=== PATIENT | female | born 1990 | race American Indian/Alaskan Native ===

== ENCOUNTER 2017-10-10 19:59 | Emergency (ER) | payer MEDICAID ==
[2017-10-10 20:12] VITALS: BP 122/75; PULSE 79; TEMP 98; O2SAT 100
[2017-10-10] MEDS ORDERED: Amoxicillin-Clav 875-125 mg Tab PO STA (20:51)
[2017-10-10] MEDS ORDERED: Amoxicillin-Clav 875-125 mg Tab PO ONE (21:01)
--- NOTE | 2017-10-10 21:03 | C.PDOC ---
History Of Present Illness 26 y/o female with no significant PMHx comes in for evaluation of bodyaches and malaise developing for the past week. Reports she also developed a sore throat a few days ago, and post-nasal drip. Otherwise patient denies high fever, headache, dizziness, neck stiffness, drooling, dysphagia, dyspnea, cough, SOB, wheezing, abd. pain, N/V/D, UTi sx. Ambulate to ED for evaluation, not in any apparent distress. Time Seen by Provider: 10/10/17 20:21 Chief Complaint (Nursing): ENT Problem History Per: Patient History/Exam Limitations: no limitations Onset/Duration Of Symptoms: Days Current Symptoms Are (Timing): Still Present Location Of Pain: Throat, Diffuse Myalgias Past Medical History Reviewed: Historical Data, Nursing Documentation, Vital Signs Vital Signs: Last Vital Signs Temp 98 F 10/10/17 20:10 Pulse 79 10/10/17 20:10 Resp 18 10/10/17 20:10 BP 122/75 10/10/17 20:10 Pulse Ox 100 10/10/17 21:08 - Medical History PMH: No Chronic Diseases Surgical History: No Surg Hx Family History: States: No Known Family Hx - Social History Hx Tobacco Use: No Hx Alcohol Use: No Hx Substance Use: No - Immunization History Hx Tetanus Toxoid Vaccination: No Hx Influenza Vaccination: No Hx Pneumococcal Vaccination: No Review Of Systems Constitutional: Positive for: Malaise, Other (Bodyaches). Negative for: Fever ENT: Positive for: Nose Discharge, Nose Congestion, Throat Pain Cardiovascular: Negative for: Chest Pain Respiratory: Negative for: Cough, Shortness of Breath, Wheezing Musculoskeletal: Negative for: Neck Pain Neurological: Negative for: Headache Physical Exam - Physical Exam Appears: Well, Non-toxic, No Acute Distress Skin: Normal Color, Warm, No Rash Head: Normacephalic Eye(s): bilateral: PERRL Ear(s): Bilateral: Normal Nose: No Flaring, Discharge (yellow post-nasal drip) Oral Mucosa: Moist, No Drooling, No Trismus Tongue: Normal Appearing Lips: Normal Appearing Throat: Erythema (bilateral erythema and pharyngeal edema), No Exudate, No Drooling Neck: Trachea Midline, Supple Cardiovascular: Rhythm Regular, No Murmur, No JVD Respiratory: No Accessory Muscle Use, No Rales, No Rhonchi, No Stridor, No Wheezing Gastrointestinal/Abdominal: Bowel Sounds, Soft, No Tenderness, No Distention, No Guarding Back: No CVA Tenderness Extremity: Normal ROM, No Tenderness, No Pedal Edema, No Deformity, No Swelling Neurological/Psych: Oriented x3, Normal Speech ED Course And Treatment O2 Sat by Pulse Oximetry: 100 (RA) Pulse Ox Interpretation: Normal Progress Note: Patient treated with PO prednisone, ibuprofen, and augmentin. Ordered rapid strep and mono spot tests. On re-eval, pt is afebrile, hemodynamically stable. Non-toxic. Tolerate PO well in ED. PulseOx 100% on RA. ENT: pharyngeal erythema and edema B/L. Neck: Supple, (-) JVD. Lungs: CTA B/L, BS equal B/L. Abd: Soft, non-tender. Neurologically intact. Rapid strep (-). MOno (-). Pt has clinical findings c/w acute pharyngitis. Pt advised. ref. to f/u with PMD, ENT In 2-3 days for re-eval. return to ED if anyw rosening or new changes. Disposition Counseled Patient/Family Regarding: Studies Performed, Diagnosis, Need For Followup, Rx Given - Disposition Referrals: Shayy Cohen MD [Primary Care Provider] - Dipak Alexis MD [Staff Provider] - Disposition: HOME/ ROUTINE Disposition Time: 21:19 Condition: STABLE Additional Instructions: Encourage fluids take medication as prescribed Follow up with PMD, ENT In 2-3 days for re-evaluation. return to ED if any worsening or new changes. Prescriptions: Amoxicillin/Clavulanate [Augmentin 875 MG-125 MG] 1 tab PO BID #14 tab Ibuprofen [Motrin Tab] 600 mg PO TID #14 tab Prednisone [Deltasone] 20 mg PO DAILY #3 tablet Instructions: Sore Throat in Adults Forms: [facility] (Kyrgyz) - Clinical Impression Clinical Impression: Pharyngitis - PA / [employer]GE [employer] / Resident Statement MD/DO has reviewed & agrees with the documentation as recorded. - Scribe Statement The provider has reviewed the documentation as recorded by the Scribe (Suzie Poole) All medical record entries made by the Scribe were at my direction and personally dictated by me. I have reviewed the chart and agree that the record accurately reflects my personal performance of the history, physical exam, medical decision making, and the department course for this patient. I have also personally directed, reviewed, and agree with the discharge instructions and disposition.
[2017-10-10 21:51] VITALS: RESP 20
== END 2017-10-10 21:50 | disposition home or self-care (01) ==
LOC: C.ER 19:59 → SUPCPDRO 19:59 → C.ER 21:50
DX: J02.9 Acute pharyngitis, unspecified (principal)